=== PATIENT | female | born 1970 | race Caucasian/White ===

== ENCOUNTER 2019-01-26 14:47 | Outpatient (CLI) | payer OTHER ==
--- NOTE | 2019-01-26 15:59 | MMO ---
Bilateral MAMMO Bilat Diag [facility]. CLINICAL HISTORY: Patient is 48 years old and is seen for diagnostic exam. The patient has the following family history of breast cancer: paternal aunt, at age 32. The patient has no personal history of cancer. The patient has a history of left Ultrasound Guided Core Biopsy in 2015 - benign. VIEWS: The views performed were: bilateral craniocaudal with tomosynthesis; bilateral mediolateral oblique with tomosynthesis; and bilateral mediolateral. FILMS COMPARED: The present examination has been compared to prior imaging studies performed at [facility] on 01/26/2019, and at [facility] on 05/17/2015 and 05/31/2015. MAMMOGRAM FINDINGS: The breasts are heterogeneously dense, which could obscure a lesion on mammography. Finding 1: There are stable benign appearing densities seen in both breasts. Finding 2: There is a stable biopsy clip seen in the left breast. There are no suspicious masses, suspicious calcifications, or new areas of architectural distortion. IMPRESSION: THERE IS NO MAMMOGRAPHIC EVIDENCE OF MALIGNANCY. A ROUTINE FOLLOW-UP MAMMOGRAM IN 1 YEAR IS RECOMMENDED. THE RESULTS OF THIS EXAM WERE SENT TO THE PATIENT. ACR BI-RADS Category 2 - Benign finding MAMMOGRAPHY NOTE: 1. A negative mammogram report should not delay a biopsy if a dominant of clinically suspicious mass is present. 2. Approximately 10% to 15% of breast cancers are not detected by mammography. 3. Adenosis and dense breasts may obscure an underlying neoplasm.
--- NOTE | 2019-01-26 16:08 | ULT ---
RIGHT BREAST ULTRASOUND: 01/26/19 HISTORY: Patient presents with generalized palpable finding in the outer aspect of the right breast. There are several very small cysts in the subareolar aspect of the right breast up to 0.7 cm in size which are not in the region of palpable concern. No evidence of solid or cystic mass in the region of palpable concern. There is some asymmetric echogenic glandular tissue which could account for some palpable findings. IMPRESSION: BIRADS 2: Benign Finding(s) Routine annual screening mammography (for women over age 40). No significant mammographic or ultrasound finding to account for palpable findings in the outer aspec t of the right breast. Small subareolar right breast cyst. Continued annual follow-up screening mammo grams. POS: OFF
== END 2019-01-26 14:48 | disposition home or self-care (01) ==
LOC: BICMAMMO 14:47
PROVIDERS: ATTEND Obstetrics & Gynecology
DX: N63.10 Unspecified lump in the right breast, unspecified quadrant (principal); N63.20 Unspecified lump in the left breast, unspecified quadrant; N60.01 Solitary cyst of right breast; Z80.3 Family history of malignant neoplasm of breast
CPT/HCPCS: 77066; G0279

== ENCOUNTER 2020-09-08 16:00 | Emergency (ER) | payer BC, OTHER ==
[2020-09-08] MEDS ORDERED: Boostrix 0.5 ML (Tdap) VIAL ONE (16:35)
[2020-09-08] MEDS ORDERED: Lidocaine 1% PF 5 ML VIAL ONE (16:41)
== END 2020-09-08 18:29 | disposition home or self-care (01) ==
LOC: ERS 16:00
DX: S01.81XA Laceration without foreign body of other part of head, initial encounter (principal); W22.8XXA Striking against or struck by other objects, initial encounter; F17.210 Nicotine dependence, cigarettes, uncomplicated
CPT/HCPCS: 12013; 90471; 90715

== ENCOUNTER 2020-09-15 10:34 | Emergency (ER) | payer BC | END 2020-09-15 11:56 | disposition home or self-care (01) | LOC: ERS 10:34 | DX: S01.81XD Laceration without foreign body of other part of head, subsequent encounter (principal); F17.210 Nicotine dependence, cigarettes, uncomplicated; X58.XXXD Exposure to other specified factors, subsequent encounter ==